=== PATIENT | male | born 2000 | race Caucasian/White ===

== ENCOUNTER → 2024-09-07 | Outpatient (CLI) | payer OTHER | END | disposition home or self-care (01) | LOC: RAD 13:35 | PROVIDERS: ATTEND Nurse Practitioner Family | DX: M25.862 Other specified joint disorders, left knee (principal); M25.861 Other specified joint disorders, right knee; M25.561 Pain in right knee; M25.562 Pain in left knee; R29.898 Other symptoms and signs involving the musculoskeletal system; M54.9 Dorsalgia, unspecified; G89.29 Other chronic pain ==